=== PATIENT | male | born 1960 | race Native Hawaiian/Other Pacific Islander ===

== ENCOUNTER 2016-08-13 08:38 | Outpatient (CLI) | payer BC ==
[~2016-08-13 08:38] MED LIST: DEXILANT60 M1 PO
== END 2016-08-13 19:08 | disposition home or self-care (01) ==
LOC: LABW 08:38
PROVIDERS: Nurse Practitioner Adult Health
DX: E78.2 Mixed hyperlipidemia (principal); I25.10 Atherosclerotic heart disease of native coronary artery without angina pectoris; Z79.899 Other long term (current) drug therapy
CPT/HCPCS: 36415; 80061; 80076

== ENCOUNTER 2017-03-07 08:43 | Outpatient (CLI) | payer BC | END 2017-03-07 19:04 | disposition home or self-care (01) | LOC: LABW 08:43 | PROVIDERS: Nurse Practitioner Adult Health | DX: E78.2 Mixed hyperlipidemia (principal); Z79.899 Other long term (current) drug therapy; Z51.81 Encounter for therapeutic drug level monitoring | CPT/HCPCS: 36415; 80061; 80076 ==

== ENCOUNTER 2019-01-15 08:37 | Outpatient (CLI) | payer BC | END 2019-01-15 20:32 | disposition home or self-care (01) | LOC: LABW 08:37 | PROVIDERS: Nurse Practitioner Adult Health | DX: I25.10 Atherosclerotic heart disease of native coronary artery without angina pectoris (principal); E78.2 Mixed hyperlipidemia; Z79.899 Other long term (current) drug therapy | CPT/HCPCS: 36415; 80061; 80076 ==

== ENCOUNTER 2019-01-22 09:12 | Outpatient (CLI) | payer BC | END 2019-01-22 22:10 | disposition home or self-care (01) | LOC: LABW 09:12 | DX: Z12.5 Encounter for screening for malignant neoplasm of prostate (principal); N40.0 Benign prostatic hyperplasia without lower urinary tract symptoms; R79.89 Other specified abnormal findings of blood chemistry; E55.9 Vitamin D deficiency, unspecified; R53.82 Chronic fatigue, unspecified; E53.8 Deficiency of other specified B group vitamins | CPT/HCPCS: 36415; 82306; 82607; 84153; 84402; 84403; 84443 ==

== ENCOUNTER 2020-09-16 10:39 | Outpatient (CLI) | payer BC | END 2020-09-16 22:13 | disposition home or self-care (01) | LOC: RAD 10:39 | PROVIDERS: ATTEND Nurse Practitioner Family | DX: M25.571 Pain in right ankle and joints of right foot (principal); M79.671 Pain in right foot ==

== ENCOUNTER 2022-05-31 09:22 | Outpatient (CLI) | payer BC | END 2022-05-31 19:06 | disposition home or self-care (01) | LOC: RAD 09:22 | PROVIDERS: ATTEND Nurse Practitioner Family | DX: M54.89 Other dorsalgia (principal); M25.512 Pain in left shoulder ==

== ENCOUNTER 2023-01-25 10:10 | Outpatient (CLI) | payer BC | END 2023-01-25 18:53 | disposition home or self-care (01) | LOC: RAD 10:10 | PROVIDERS: ATTEND Orthopaedic Surgery | DX: M79.644 Pain in right finger(s) (principal) ==

== ENCOUNTER 2023-02-02 13:51 | Outpatient (CLI) | payer BC | END 2023-02-02 20:01 | disposition home or self-care (01) | LOC: RAD 13:51 | PROVIDERS: ATTEND Orthopaedic Surgery | DX: M79.644 Pain in right finger(s) (principal) ==